=== PATIENT | male | born 1955 | race Caucasian/White ===

== ENCOUNTER 2017-06-18 19:38 | Emergency (ER) | payer MEDICAID, OTHER ==
[2017-06-18] MEDS ORDERED: PROPARACAINE 0.5% 15 ML OPHT DROP ONE (20:03)
[2017-06-18] MEDS ORDERED: FLUORESCEIN SODIUM 1 MG STRIP OP ONE (20:04)
[2017-06-18] MEDS ORDERED: valACYclovir 500 MG TAB PO ONE (20:09)
[2017-06-18] MEDS ORDERED: predniSONE 20 MG TAB PO ONE (20:09)
--- NOTE | 2017-06-18 20:13 | EDPHY ---
H & P Stated Complaint: Sinus infection, sent by PCP. Time Seen by Provider: 06/18/17 19:59 HPI/ROS: CHIEF COMPLAINT: Left facial pain HISTORY OF PRESENT ILLNESS: The patient is a 61-year-old man who comes to the emergency department complaining of left facial pain. He was seen last week at his primary care's office and diagnosed with bronchitis. He returned 2 days ago with sinus congestion and was diagnosed with sinusitis and started on Augmentin. Since that time he has developed a cold sore on his left upper lip and pain and paresthesia feeling to his left upper cheek up to his temporal region and scalp region. He has not had any vision changes. He also has early welts on his left cheek. He called his primary care's office who recommended he come here for further evaluation. He has not had a fever. No neck pain or stiffness. No trauma. REVIEW OF SYSTEMS: Constitutional: denies: chills, fever, recent illness, recent injury EENTM: See HPI Respiratory: Cough denies: shortness of breath Cardiac: denies: chest pain, irregular heart rate, lightheadedness, palpitations Gastrointestinal/Abdominal: denies: abdominal pain, diarrhea, nausea, vomiting, blood streaked stools Genitourinary: denies: dysuria, frequency, hematuria, pain Musculoskeletal: denies: joint pain, muscle pain Skin: See HPI Neurological: denies: headache, numbness, paresthesia, tingling, dizziness, weakness Hematologic/Lymphatic: denies: blood clots, easy bleeding, easy bruising Immunologic/allergic: denies: HIV/AIDS, transplant EXAM: GENERAL: Well-appearing, well-nourished and in no acute distress. HEAD: Atraumatic, normocephalic. EYES: Pupils equal round and reactive to light, extraocular movements intact, sclera anicteric, conjunctiva are normal. ENT: TMs normal, no vesicles, nares patent, oropharynx clear without exudates. Moist mucous membranes. Cornea stained with fluorescein, no dendritic uptake NECK: Normal range of motion, supple without lymphadenopathy or JVD. LUNGS: Breath sounds clear to auscultation bilaterally and equal. No wheezes rales or rhonchi. HEART: Regular rate and rhythm without murmurs, rubs or gallops. ABDOMEN: Soft, nontender, normoactive bowel sounds. No guarding, no rebound. No masses appreciated. BACK: No CVA tenderness, no spinal tenderness, step-offs or deformities EXTREMITIES: Normal range of motion, no pitting or edema. No clubbing or cyanosis. NEUROLOGICAL: Cranial nerves II through XII grossly intact. Normal speech, normal gait. 5/5 strength, normal movement in all extremities, normal sensation PSYCH: Normal mood, normal affect. SKIN: The patient has zoster type lesions to his left upper lip an early lesions to his left upper cheek. Source: Patient Exam Limitations: No limitations - Personal History Current Tetanus/Diphtheria Vaccine: No Current Tetanus Diphtheria and Acellular Pertussis (TDAP): No Tetanus Vaccine Date: within 10 years - Medical/Surgical History Hx Asthma: No Hx Chronic Respiratory Disease: No Hx Diabetes: No Hx Cardiac Disease: Yes Hx Renal Disease: No Hx Cirrhosis: No Hx Alcoholism: No Hx HIV/AIDS: No Hx Splenectomy or Spleen Trauma: No Other PMH: Aortic valve replaced 3 yrs ago. arrhythmia,pvt,svt. Chronic sinus problems - Family History Significant Family History: No pertinent family hx - Social History Smoking Status: Never smoked Alcohol Use: Sober Drug Use: None Constitutional: Initial Vital Signs Temperature (C) 37 C 06/18/17 19:39 Heart Rate 84 06/18/17 19:39 Respiratory Rate 16 06/18/17 19:39 Blood Pressure 110/75 06/18/17 19:39 O2 Sat (%) 97 06/18/17 19:39 O2 Delivery Mode Room Air Allergies/Adverse Reactions: No Known Allergies Allergy (Verified 04/24/16 14:37) Home Medications: Medication Instructions Recorded Plavix 04/24/16 Hydrocodone/APAP 5/325 [[place] 1 - 2 tab PO Q4H PRN #10 tab 06/18/17 5/325 (RX)] Valacyclovir HCl [Valtrex] 1,000 mg PO TID #21 tab 06/18/17 predniSONE 60 mg PO DAILY #15 tab 06/18/17 Medical Decision Making ED Course/Re-evaluation: The patient is currently being treated for sinus infection and is clearly developing facial shingles. I will start him on valacyclovir and steroids. He will continue taking the Augmentin. He denies chest pain or shortness of breath. No murmurs. We discussed the prognosis and treatment. We discussed follow-up with ophthalmology and with his primary doctor. Differential Diagnosis: Partial list of the Differential diagnosis considered include but were not limited to; the shingles, cellulitis, sinusitis and although unlikely based on the history and physical exam, I also considered endocarditis, meningitis. I discussed these differential diagnoses and the plan with the patient as well as the usual and expected course. The patient understands that the diagnosis is provisional and that in medicine we are not always correct and that further workup is often warranted. Usual and customary warnings were given. All of the patient's questions were answered. The patient was instructed to return to the emergency department should the symptoms at all worsen or return, otherwise to followup with the physician as we discussed. - Data Points Medications Given: Discontinued Medications Hydrocodone Bitart/Acetaminophen ([place] 5/325mg Prepack#6) 1 btl TAKEHOME EDNOW ONE Stop: 06/18/17 20:31 Last Admin: 06/18/17 20:33 Dose: 1 btl Prednisone (Prednisone) 60 mg PO EDNOW ONE Stop: 06/18/17 20:10 Last Admin: 06/18/17 20:19 Dose: 60 mg Valacyclovir HCl (Valtrex) 1,000 mg PO EDNOW ONE Stop: 06/18/17 20:10 Last Admin: 06/18/17 20:19 Dose: 1,000 mg Departure - Departure Disposition: Home, Routine, Self-Care Clinical Impression: Shingles rash Qualifiers: Herpes zoster complications: without complications Qualified Code(s): B02.9 - Zoster without complications Condition: Fair Instructions: Hydrocodone/Acetaminophen (By mouth), Shingles (ED) Additional Instructions: Continue taking the Augmentin Referrals: Villa Olivera MD [Primary Care Provider] - As per Instructions Angela Barker MD [Medical Doctor] - As per Instructions Prescriptions: Hydrocodone/APAP 5/325 [[place] 5/325 (RX)] 1 - 2 tab PO Q4H PRN #10 tab PRN Reason: Pain, Moderate predniSONE 60 mg PO DAILY #15 tab Valacyclovir HCl [Valtrex] 1,000 mg PO TID #21 tab
[2017-06-18] MEDS ORDERED: HYDROCOD/APAP 5/325 PREPACK#6 BTL TAKEHOME ONE ×2 (20:30→20:31)
[2017-06-18 20:43] VITALS: BP 112/80; PULSE 78; RESP 18; TEMP 98.6; O2SAT 95
== END 2017-06-18 20:35 | disposition home or self-care (01) ==
DX: B02.9 Zoster without complications (principal)
CPT/HCPCS: J7512